=== PATIENT | female | born 1995 | race Caucasian/White ===

== ENCOUNTER 2019-11-04 20:41 | Emergency (ER) | payer SELFPAY ==
[~2019-11-04] VITALS: Ht 157.5 cm; Wt 64.0 kg
[2019-11-05] MEDS ORDERED: CEFTRIAXONE SODIUM 250 MG/VIAL IM ONE (02:15)
[2019-11-05] MEDS ORDERED: AZITHROMYCIN 500 MG TABLET PO ONE (02:15)
[2019-11-05 02:30] VITALS: BP 136/77
== END 2019-11-05 03:10 | disposition home or self-care (01) ==
LOC: ER 20:41
DX: Z20.2 Contact with and (suspected) exposure to infections with a predominantly sexual mode of transmission (principal); N89.8 Other specified noninflammatory disorders of vagina
CPT/HCPCS: 81025; 96372; 99283; J0696